=== PATIENT | male | born 1975 | race Caucasian/White ===

== ENCOUNTER 2019-05-12 10:33 | Outpatient (CLI) | payer OTHER | END 2019-05-12 10:38 | disposition home or self-care (01) | LOC: RAD 10:33 | DX: M25.561 Pain in right knee (principal) ==

== ENCOUNTER 2020-04-06 19:16 | Emergency (ER) | payer OTHER ==
[~2020-04-06] VITALS: Ht 188 cm; Wt 77.1 kg
[2020-04-06] MEDS ORDERED: MOTRIN (20:12)
== END 2020-04-06 23:34 | disposition home or self-care (01) ==
LOC: ER 19:16
DX: S96.811A Strain of other specified muscles and tendons at ankle and foot level, right foot, initial encounter (principal); S93.491A Sprain of other ligament of right ankle, initial encounter; X50.1XXA Overexertion from prolonged static or awkward postures, initial encounter; Y93.89 Activity, other specified; Y92.89 Other specified places as the place of occurrence of the external cause; Y99.8 Other external cause status